=== PATIENT | female | born 1945 | race Caucasian/White ===

== ENCOUNTER 2020-07-27 12:32 | Outpatient (CLI) | payer MEDICARE ==
[2020-07-28 06:59] LABS: SARS-CoV-2 PCR by NAA Not Detected (NotDetected)
== END 2020-07-27 12:33 | disposition home or self-care (01) ==
LOC: CSHLAB 12:32
PROVIDERS: ATTEND Internal Medicine Gastroenterology
DX: Z20.822 Contact with and (suspected) exposure to COVID-19 (principal); R19.5 Other fecal abnormalities
CPT/HCPCS: 87635; U0003; U0005

== ENCOUNTER 2020-07-30 08:29 | Day surgery (SDC) | payer MEDICARE ==
[2020-07-29 09:53] VITALS: BMI 27.4
[2020-07-30] MEDS ORDERED: Lidocaine 1% MPF 2 ML VIAL ONE (09:17)
[2020-07-30] MEDS ORDERED: PROPOFOL 40 ML ONE (11:10)
[2020-07-30] MEDS ORDERED: Lidocaine 1% PF 5 ML VIAL ONE (11:12)
== END 2020-07-30 12:20 | disposition home or self-care (01) ==
LOC: CSHSDC 08:29
PROVIDERS: ATTEND Internal Medicine Gastroenterology
PROC: 0DJD8ZZ Inspection of Lower Intestinal Tract, Via Natural or Artificial Opening Endoscopic (ICD-10-PCS; principal; 2020-07-30)
DX: K92.1 Melena (principal); Z86.010 Personal history of colon polyps; K64.4 Residual hemorrhoidal skin tags; K64.8 Other hemorrhoids
CPT/HCPCS: J2704